=== PATIENT | female | born 1970 ===

== ENCOUNTER 2018-03-08 06:48 | Inpatient (IN) | payer OTHER ==
[2018-03-08] VITALS (14 sets, daily range): BP systolic 108–142; BP diastolic 62–82
[~2018-03-08] VITALS: Ht 147.3 cm
[2018-03-08] MEDS ORDERED: ceFAZolin sod 2 GM in D5W 110 ML IVPB ONE (07:00)
[2018-03-08] MEDS ORDERED: NKM (07:38)
[2018-03-08] MEDS ORDERED: Thrombin 5000 units TOPIC ONE ×2 (07:48→07:50)
[2018-03-08] MEDS ORDERED: EPINEPHrine 1mg/1ml Amp ONE (07:48)
[2018-03-08] MEDS ORDERED: Bacitracin 50000 Units Vial ONE (07:49)
[2018-03-08] MEDS ORDERED: Bupivacaine 0.5% Inj 30 ml vial INJ ONE (07:49)
[2018-03-08] MEDS ORDERED: Gelfoam Size TOPIC ONE (07:50)
[2018-03-08] MEDS ORDERED: Thrombin 5000 units spray kit TOPIC ONE (07:50)
[2018-03-08] MEDS ORDERED: Vancomycin 1gm inj IVPB ONE (07:50)
[2018-03-08] MEDS ORDERED: Gelfoam Absorbable 1gm powder pkt TOPIC ONE (07:51)
[2018-03-08] MEDS ORDERED: Heparin 5000 units/ml inj ONE ×2 (08:16→08:17)
[2018-03-08] MEDS ORDERED: Zemuron 50mg/5ml Inj IV ONE (08:41)
--- NOTE | 2018-03-08 08:45 | Pre-Procedure Note/Attestation ---
Pre-Procedure Note/Attestation Complete Prior to Procedure Procedure Narrative: Acdf c4-5 and c5-6 with bone marrow aspiration Indications for Procedure Pre-Operative Diagnosis: cervical radiculopathy Attestation I attest that I discussed the nature of the procedure; its benefits; risks and complications; and alternatives (and the risks and benefits of such alternatives ), prior to the procedure, with the patient (or the patient's legal printing supplies sales representative). I attest that, if there was a reasonable possibility of needing a blood transfusion, the patient (or the patient's legal printing supplies sales representative) was given the [facility] standardized written summary, pursuant to the [place] Blood Safety Act ([place] Health and Safety Code # 1645, as amended). I attest that I re-evaluated the patient just prior to the surgery and that there has been no change in the patient's H&P, except as documented below: Reji Wiley MD Mar 08, 2018 08:45
[2018-03-08] MEDS ORDERED: Dexamethasone 4mg/ml vial ONE (08:57)
[2018-03-08] MEDS ORDERED: Sodium Chloride 10ml vial INJ ONE (08:57)
[2018-03-08] MEDS ORDERED: Lidocaine 1% MPF 10mg/ml 5ml ONE (08:57)
[2018-03-08] MEDS ORDERED: fentaNYL 100 mcg/2 mL IV ONE ×2 (08:59→10:21)
[2018-03-08] MEDS ORDERED: LR 1000ml ONE (09:00)
[2018-03-08] MEDS ORDERED: Sterile Water Irrig 1000ml IRRIG ONE (09:00)
[2018-03-08] MEDS ORDERED: Propofol 1,000mg/ 100ml btl IV ONE (09:00)
[2018-03-08] MEDS ORDERED: NS Irrig 1000ml ONE (09:00)
[2018-03-08] MEDS ORDERED: Lidocaine 1% Plain 30 ml INJ ONE ×2 (09:01→10:46)
[2018-03-08] MEDS ORDERED: LR 1000ml 1,000 ML IVLG SCH (09:49)
[2018-03-08] MEDS ORDERED: DiphenhydrAMINE 50mg/ml Inj IVP PRN (10:00)
[2018-03-08] MEDS ORDERED: Metoclopramide 10mg/2ml Inj IVP PRN (10:00)
[2018-03-08] MEDS ORDERED: Norco 5mg/325mg tab ORAL PRN ×2 (10:00→14:30)
[2018-03-08] MEDS ORDERED: HYDROcodone/Acetamin 7.5/325 tab ORAL PRN ×3 (10:00→14:30)
[2018-03-08] MEDS ORDERED: Midazolam 2mg/2ml Inj IVP PRN (10:00)
[2018-03-08] MEDS ORDERED: Ketorolac 30mg Inj IV PRN ×2 (10:00)
[2018-03-08] MEDS ORDERED: oxyCODONE HCL/Acetaminophen 5/325mg ORAL PRN (10:00)
[2018-03-08] MEDS ORDERED: Labetalol 5mg/ml 20ml vial IV PRN (10:00)
[2018-03-08] MEDS ORDERED: Atropine Inj 1mg/10ml Syr IV PRN (10:00)
[2018-03-08] MEDS ORDERED: Acetaminophen (Non formulary) 100 ML IV SCH (10:00)
[2018-03-08] MEDS ORDERED: LORazepam Inj 2mg/ml 1ml IV PRN (10:00)
[2018-03-08] MEDS ORDERED: fentaNYL 100 mcg/2 mL IV PRN (10:00)
--- NOTE | 2018-03-08 10:00 | Anethesia Preoperative Eval ---
Anesthesia Pre-op PMH/ROS General Date of Evaluation: Mar 08, 2018 Time of Evaluation: 08:41 Anesthesiologist: Catherine ASA Score: ASA 1 Mallampati Score Class I : Soft palate, uvula, fauces, pillars visible Class II: Soft palate, uvula, fauces visible Class III: Soft palate, base of uvula visible Class IV: Only hard plate visible Mallampati Classification: Class I Surgeon: Saurabh Diagnosis: Neck Pain Surgical Procedure: ACDF C4-5, C5-6, Bone Marrow Aspiration Anesthesia History: none Family History: no anesthesia problems Allergies: Coded Allergies: No Known Allergies (Unverified , 03/08/18) Medications: see eMAR Past Medical History Gastrointestinal/Genitourinary: Reports: other - L Kidney Donated To Father PSxH Narrative: L Kidney SX Anesthesia Pre-op Phys. Exam Physician Exam Last Vital Signs Date Time Temp Pulse Resp B/P (MAP) Pulse Ox O2 Delivery O2 Flow Rate FiO2 03/08/18 07:34 98.1 61 18 136/77 (96) 100 98.1 03/08/18 07:27 Room Air Constitutional: NAD Neurologic: CN 2-12 intact Cardiovascular: RRR Respiratory: CTA Gastrointestinal: S/NT/ND Airway Exam Mallampati Score: Class I MO: full ROM: limited Teeth: intact Anesthesia Pre-op A/P Labs Urine Test Test 03/08/18 07:05 Urine HCG, Qualitative Negative (NEGATIVE) Risk Assessment & Plan Assessment: ASA 1 Plan: GA, BIS, GlideScope Go Status Change Before Surgery: No Pre-Antibiotics Dru Grams Ancef IV Given Within 1 Hr of Incision: Yes Time Given: 09:11 Bo Alexander MD Mar 08, 2018 09:59
--- NOTE | 2018-03-08 10:00 | Immediate Post-Op Evaluation ---
Immediate Post-Op Evalulation Immediate Post-Op Evalulation Procedure: ACDF C4-5, C5-6 Date of Evaluation: Mar 08, 2018 Time of Evaluation: 12:18 IV Fluids: 1000 LR Blood Products: 0 Estimated Blood Loss: 13 Urinary Output: 100 Blood Pressure Systolic: 127 Blood Pressure Diastolic: 73 Pulse Rate: 83 Respiratory Rate: 16 O2 Sat by Pulse Oximetry: 100 Temperature (Fahrenheit): 97.6 Pain Score (1-10): 3 Nausea: No Vomiting: No Complications 0 Patient Status: awake, reacts, patent, extubated, none Hydration Status: adequate Dru Grams Ancef IV Given Within 1 Hr of Incision: Yes Time Given: 09:11 Bo Alexander MD Mar 08, 2018 10:00
--- NOTE | 2018-03-08 12:17 | Brief Operative Note ---
Immediate Post Operative Note Operative Note Pre-op Diagnosis: cervical radiculopathy Procedure: acdf c45 and c56 with right iliac crest bone marrow aspiration Post-op Diagnosis: same as pre-op Findings: consistent w/pre-op dx studies Surgeon: Saurabh Subcontract Manager: Shauna Anesthesiologist: Ghassan Anesthesia: general Specimen: yes Complications: none Condition: stable Fluids: 1300cc Estimated Blood Loss: minimal - 13cc Drains: none Implant(s) used?: Yes Reji Wiley MD Mar 08, 2018 12:17
[2018-03-08] MEDS: Hydromorphone 0.5mg/0.5ml inj IVP PRN ×2 (12:27→13:04)
--- NOTE | 2018-03-08 13:43 | Diagnostic Imaging Report ---
Indication: Pain, post endotracheal tube placement Technique: One view of the chest Comparison: 5 hours earlier Findings: Interim endotracheal intubation, endotracheal tube tip projecting approximately 5 cm above the bertha. There is increased bilateral interstitial and airspace edema, left greater than right. The heart remains enlarged. Impression: Satisfactory endotracheal intubation Worsening interstitial and airspace edema, over 5 hours
[2018-03-08] MEDS ORDERED: Morphine Sulfate 4mg/ml Inj (IV USE ONLY) IV PRN (14:30)
[2018-03-08] MEDS ORDERED: Naloxone 0.4mg/ml Inj IVP PRN (14:30)
[2018-03-08] MEDS ORDERED: Morphine Sulfate 2mg/ml Inj(IV/IM USE ONLY) IV PRN (14:30)
[2018-03-08] MEDS: D5 1/2NS 1,000 ML IV SCH (15:04)
[2018-03-08] MEDS: Morphine Sulfate 4mg/ml Inj (IV USE ONLY) IV PRN (17:05)
[2018-03-08] MEDS: Docusate 100mg cap ORAL SCH (17:05)
[2018-03-08] MEDS: ceFAZolin sod 1 GM in D5W 110 ML IV SCH (17:06)
--- NOTE | 2018-03-08 23:45 | Operative Note - Dictated ---
DATE OF OPERATION: 03/08/2018 PREOPERATIVE DIAGNOSIS: C4-C5 and C5-C6 disk protrusion with upper extremity radiculopathy. POSTOPERATIVE DIAGNOSIS: C4-C5 and C5-C6 disk protrusion with upper extremity radiculopathy. PROCEDURES PERFORMED: 1. Anterior cervical interbody fusion at C4-C5 and C5-C6. 2. Anterior diskectomy and foraminotomy at C4-C5 and C5-C6. 3. Placement of PEEK interbody device at C4-C5 and C5-C6. 4. Interbody fusion with local autograft, Balsam allograft, and bone marrow aspirate concentrate. 5. Anterior cervical instrumentation from C4-C7. 6. Acquisition of bone marrow aspirate from the right iliac crest. SURGEON: Reji Wiley M.D. SENIOR BI ARCHITECT: Giacomo Villatoro M.D. ANESTHESIA: General endotracheal anesthesia. ANESTHESIOLOGIST: Bo Alexander M.D. EBL: 13 mL. FLUIDS: 1300 mL. IV ANTIBIOTICS: 2 g of Ancef. BACKGROUND: This is a pleasant female, who failed nonoperative treatment and option for above treatment was given. Risks, alternatives, and benefits were discussed with the patient at length. The patient wished to proceed. Consent form was signed and no guarantees were given. OPERATIVE FINDINGS: Herniated nucleus pulposus at C4-C5 and C5-C6 with central canal stenosis, severe bilateral neural foraminal stenosis, spondylosis, and nerve root impingement bilaterally at C4-C5 and C5-C6. DESCRIPTION OF OPERATION: The patient was brought into the operating room, supine on a stretcher. Appropriate IV lines were placed by the anesthesiologist. A 2 g of Ancef was administered. The patient was induced and intubated without complication. The patient was placed onto the operating room table. The neck was placed into neutral alignment. The arms were tucked by the side. All bony prominences were well padded as well as the four extremities. SSEP, EMGs, and neuromonitoring were done, and remained stable throughout the case. Preoperative fluoroscopy revealed the planned incision to be on the right side over the C5 vertebral body. Fluoroscopy showed the neck to be in adequate alignment. The neck was prepped and draped in the usual sterile fashion. At this point, the incision was carried out with a scalpel on the anterior right side of the neck in the crease of the neck. Hemostasis was achieved with bipolar cautery. The platysma was incised in line with the skin incision. Blunt dissection was carried out in the interval between the strap muscles and sternocleidomastoid. Superficial cervical fascia was dissected caudally as well as cephalad. Carotid pulse was palpated and was found to be well lateral to the field of dissection. Deep cervical fascia was encountered. Once deep cervical fascia was found, blunt dissection was carried out with Kittners as well as finger dissection to find the prevertebral space. The longus colli was found on both sides of the spine and subperiosteally dissected off of the spine. Retractors were set into place. A spinal needle was used to identify the disk spaces at C4-C5 and C5-C6 via lateral fluoroscopy. Retractors were set into place. The case in entirety was done with the use of intraoperatively sterilely draped microscope. At this point, attention was first diverted to the C5-C6 level. With a #15 scalpel, an incision was carried out in the anterior annulus and with straight and curved curettes and pituitary rongeurs as well as a high-speed drill, a radical diskectomy was carried out. Endplate cartilage was removed. Endplate bone was well preserved and the drilling was done to the posterior longitudinal ligament. There were significant disk protrusions causing central stenosis and osteophytes laterally and protrusions causing neural foraminal stenosis for the exiting C6 nerve root. At this point, the uncus was removed with a high-speed drill with a #1 Microsect curette was used to remove the PLL and with #1 and #2 Kerrison punches, a complete decompression of the spinal canal, spinal cord, neural foramina, and the exiting nerve root was accomplished. Valsalva was done at 40 mmHg. There was no CSF leak. An oblique and a complete decompression was accomplished. Now, retractors were placed at the C4-C5 level and with the same instruments, a high-speed drill, straight and curved curette, #1 and #2 Kerrison punches as well as a high-speed drill, a radical diskectomy was done. Endplate cartilage was removed. Endplate bone was well preserved and the drilling was done to the level of the posterior longitudinal ligament. A Microsect #1 curette was used to remove the posterior longitudinal ligament and a complete decompression of the central canal and neural foramina was accomplished. There was significant disk protrusions causing stenosis and a complete decompression of the neural foramina was completed. Valsalva was done and there was no CSF leak. Before this was done, the Jamshidi needle in the right iliac crest, which was also prepped and draped previously before skin incision on the neck. Jamshidi needle was placed in the iliac crest and 30 mL of bone marrow was aspirated and sent for concentration for stem cells. Once this was completed, attention was now diverted back to the spine and the spine case was started. Once the a diskectomies and foraminotomies were completed, trials from the Spinal [employer] System were used and a 6 mm PEEK interbody device was chosen, was packed with Balsam putty, bone marrow aspirate concentrate as well as local autograft, which was harvested from the drilling of the endplates and was packed into the PEEK interbody device. Now, the PEEK interbody device was tamped into place one at C5-C6 and another one at C4-C5 with excellent recreation of disk height and lordosis at both levels. The PEEK interbody device measured 11 x 14 x 6 mm with 7 degrees of lordosis and was from the [employer]inal [employer] System. Now, a [place] plate of 26 mm in length was chosen, bent into a lordotic shape, and was fixed to the anterior surface of the C4, C5, and C6 vertebral bodies with variable self-drilling screws at C4. A 14 mm screws were used bilaterally at C5 and C6. A 12 mm screws were used bilaterally. Each screw had excellent purchase and sat below the locking mechanism of the plate well and the screws were medialized appropriately once they were put in. At this point, the wound was copiously irrigated with triple antibiotic solution. This was done multiple times during the case SSEP and EMGs remained stable during the case. Hemostasis was achieved. The platysma was closed with 3-0 Vicryl suture. The subcuticular layer was closed with 3-0 Monocryl suture in an interrupted fashion. Dermabond was placed. All sponge, needle, and instrument counts were correct. There were no complications in the case. Cervical collar was placed. The patient was extubated, was taken to the recovery room in stable condition, and was found to be neurovascularly intact. Reji Wiley M.D. DR: SARITA JOB#: [id number] CC:
[2018-03-09] MEDS: ceFAZolin sod 1 GM in D5W 110 ML IV SCH ×2 (00:18→09:51)
[2018-03-09] MEDS: D5 1/2NS 1,000 ML IV SCH ×2 (00:18→10:35)
[2018-03-09] MEDS: Morphine Sulfate 4mg/ml Inj (IV USE ONLY) IV PRN ×3 (00:26→10:02)
[2018-03-09 00:58] VITALS: BP 102/64
[2018-03-09 04:59] VITALS: BP 103/70
--- NOTE | 2018-03-09 07:27 | 48 Hour Post Anesthesia Eval ---
Post Anesthesia Evaluation Procedure: ACDF C4-5, C5-6 Date of Evaluation: Mar 09, 2018 Time of Evaluation: 07:26 Blood Pressure Systolic: 103 0: 64 Pulse Rate: 72 Respiratory Rate: 20 Temperature (Fahrenheit): 97.6 O2 Sat by Pulse Oximetry: 99 Airway: patent Nausea: No Vomiting: No Pain Intensity: 2 Hydration Status: adequate Cardiopulmonary Status: stable Mental Status/LOC: patient returned to baseline Follow-up Care/Observations: n/a Post-Anesthesia Complications: none Follow-up care needed: ready to discharge Shaka Ashby MD Mar 09, 2018 07:27
[2018-03-09 08:00] VITALS: BP 117/71
[2018-03-09] MEDS: Docusate 100mg cap ORAL SCH (09:18)
[2018-03-09 12:00] VITALS: BP 109/70
--- NOTE | 2018-03-09 12:48 | History and Physical ---
History of Present Illness General Date patient seen: Mar 09, 2018 Present Illness HPI 47 year old female with cervical radiculopathy admitted for acdf c45 and c56 with right iliac crest bone marrow aspiration. Post operatively she is admitted for post op care. Allergies: Coded Allergies: No Known Allergies (Unverified , 03/08/18) Medication History Scheduled No Known Medications* (NKM - No Known Medications*), 0 ., (Reported) Patient History Healthcare decision maker CARLA AMBROCIOZ - Resuscitation status Full Code Advanced Directive on File Past Medical/Surgical History Past Medical/Surgical History: (1) Cervical radiculopathy Review of Systems All Other Systems: negative except mentioned in HPI Physical Exam General Appearance: WD/WN Lines, tubes and drains: peripheral HEENT: normocephalic, atraumatic Neck: non-tender, normal alignment Respiratory/Chest: lungs clear Cardiovascular/Chest: normal peripheral pulses, normal rate Abdomen: normal bowel sounds, non tender Genitourinary/Rectal: normal genital exam Extremities: normal range of motion Last 24 Hour Vital Signs Date Time Temp Pulse Resp B/P (MAP) Pulse Ox O2 Delivery O2 Flow Rate FiO2 03/09/18 12:00 97.8 77 18 109/70 (83) 96 97.8 03/09/18 09:46 Room Air 03/09/18 08:00 97.8 80 18 117/71 (86) 96 97.8 03/09/18 07:27 207.7 72 20 99 03/09/18 04:59 98.5 74 16 103/70 (81) 96 98.5 03/09/18 00:58 98.1 81 20 102/64 (77) 100 98.1 03/08/18 21:00 Room Air 03/08/18 20:04 98.3 86 19 117/72 (87) 98 98.3 03/08/18 16:00 97.5 83 18 108/67 (81) 97.5 03/08/18 14:15 97.4 87 18 122/74 (90) 97.4 03/08/18 13:45 97.4 86 18 139/64 (89) 97.4 03/08/18 13:45 Nasal Cannula 2.0 03/08/18 13:30 98.3 86 18 139/72 100 Nasal Cannula 3 98.3 03/08/18 13:15 83 17 123/72 100 Nasal Cannula 3 03/08/18 13:04 88 17 117/62 100 Nasal Cannula 3 03/08/18 13:04 97.2 03/08/18 12:57 97.2 03/08/18 12:55 82 25 138/78 100 Nasal Cannula 3 Intake and Output 03/08/18 03/09/18 19:00 07:00 Intake Total 2200 ml 1710 ml Output Total 450 ml 2300 ml Balance 1750 ml -590 ml Intake Oral 400 ml 400 ml IV Total 1800 ml 1310 ml Output Urine Total 400 ml 2300 ml Estimated Blood Loss 50 ml # Voids 1 Height (Feet): 4 Height (Inches): 10.00 Weight (Pounds): 0 Medications Current Medications Medications (Trade) Dose Ordered Sig/Marquita Route PRN Reason Start Time Stop Time Status Last Admin Dose Admin Acetaminophen (Tylenol) 650 mg Q4H PRN ORAL headache or temp>101 03/08/18 14:30 04/07/18 14:29 Acetaminophen/ Hydrocodone Bitart ([place] 5/325) 1 tab Q3H PRN ORAL Mild Pain (Pain Scale 1-3) 03/08/18 14:30 03/15/18 14:29 Acetaminophen/ Hydrocodone Bitart ([place] 7.5/325) 1 tab Q3H PRN ORAL Moderate Pain (Pain Scale 4-6) 03/08/18 14:30 03/15/18 14:29 Acetaminophen/ Hydrocodone Bitart ([place] 7.5/325) 2 tab Q3H PRN ORAL Severe Pain (Pain Scale 7-10) 03/08/18 14:30 03/15/18 14:29 Cetylpyridinium Chloride (Cepacol) 1 lozg EVERY 6 HOURS PRN DAMIEN sore throat 03/09/18 09:00 04/08/18 08:59 Dextrose/Sodium Chloride 1,000 ml @ 100 mls/hr Q10H IV 03/08/18 14:30 04/07/18 14:29 03/09/18 10:35 Docusate Sodium (Colace) 100 mg TWICE A DAY ORAL 03/08/18 18:00 04/07/18 17:59 03/09/18 09:18 Morphine Sulfate (Morphine Sulfate) 2 mg Q4H PRN IV Mild Pain (Pain Scale 1-3) 03/08/18 14:30 03/15/18 14:29 Morphine Sulfate (Morphine Sulfate) 4 mg Q3H PRN IV Severe Pain (Pain Scale 7-10) 03/08/18 14:30 03/15/18 14:29 03/09/18 10:02 Morphine Sulfate (Morphine Sulfate) 4 mg Q4H PRN IV Moderate Pain (Pain Scale 4-6) 03/08/18 14:30 03/15/18 14:29 Naloxone HCl (Narcan) 0.1 mg PRN PRN IVP RR<12/min, pt unarousable 03/08/18 14:30 04/07/18 14:29 Ondansetron HCl (Zofran) 4 mg Q6H PRN IVP Nausea & Vomiting 03/08/18 20:45 04/07/18 20:44 03/08/18 20:50 Temazepam (Restoril) 15 mg HSPRN PRN ORAL Insomnia 03/08/18 20:45 03/15/18 20:44 03/08/18 20:50 Assessment/Plan Problem List: (1) acdf c45 and c56 (2) Cervical radiculopathy ICD Codes: M54.12 - Radiculopathy, cervical region SNOMED: [id number] Assessment/Plan pain management post op care dvt prophylaxis symptomatic treatment. Yancy Randolph MD Mar 09, 2018 12:48
[2018-03-09] MEDS ORDERED: NORCO 10-325 T1 EACH ORAL ×2 (15:08→15:13)
[2018-03-09] MEDS ORDERED: SOMA250 MG PO ×2 (15:09→15:15)
[2018-03-09 16:34] VITALS: BP 111/70
[2018-03-09] MEDS ORDERED: Tubing IV Secondary IV ONE (16:59)
[2018-03-09] MEDS ORDERED: D5 1/2NS 1000ml IV ONE (16:59)
--- NOTE | 2018-03-10 12:06 | Discharge Summary ---
Discharge Summary Discharge Summary _ DATE OF ADMISSION: 03/08/2018 DATE OF DISCHARGE: 03/09/2018 CONSULTANTS: Dr. Yancy Randolph BRIEF HOSPITAL COURSE: Patient is a 47-year-old female, who was diagnosed with C4-C5 and C5-C6 disc protrusion with upper extremity radiculopathy, who've failed nonoperative treatment, was admitted and underwent ACDF on C4-C5 and C5-C6 with right iliac crest bone marrow aspiration. She tolerated procedure well and postoperatively was admitted for pain management. She was placed on SCDs for DVT prophylaxis. She was encouraged use of incentive spirometry. Diet was advanced. She was seen by physical therapy. Mosquera catheter was discontinued. She had good pain control and was ambulating well. Vitals were stable. She was discharged home. FINAL DIAGNOSES: C4-C5 and C5-C6 disc protrusion with upper extremity radiculopathy Status post ACDF on C4-C5 and C5-C6 with right iliac crest bone marrow aspiration (Refer to operative report) DISPOSITION: Patient was discharged home. DISCHARGE INSTRUCTIONS: Follow up within a week. I have been assigned to dictate discharge summary on this account, and I was not involved in the patient's management. Rosalinda Cowan NP Mar 10, 2018 12:06
--- NOTE | 2018-03-20 11:17 | General Progress Note ---
Progress Note Progress Note Date: 03-09-18 S: Patient doing well. Mild dysphagia with arm pain resolved. Mild pain in the cervical spine. collar on. ambulating avss a and o times 3 dressing cdi motor 5/5 in the ue lt intact calves soft and nt o: sp acdf and doing well p: dc today oob and pt fu in 7 to 10 days post op instructions given pain management Reji Wiley MD Mar 20, 2018 11:17
== END 2018-03-09 17:00 | disposition home or self-care (01) | DRG 30 ==
LOC: SDSOVERFLO 06:48 → 3E 13:45
PROC: 0RT30ZZ Resection of Cervical Vertebral Disc, Open Approach (ICD-10-PCS; principal; 2018-03-08 08:30)
PROC: 07DR3ZZ Extraction of Iliac Bone Marrow, Percutaneous Approach (ICD-10-PCS; principal; 2018-03-08 08:30)
PROC: 01N10ZZ Release Cervical Nerve, Open Approach (ICD-10-PCS; principal; 2018-03-08 08:30)
PROC: 0RG20A0 Fusion of 2 or more Cervical Vertebral Joints with Interbody Fusion Device, Anterior Approach, Anterior Column, Open Approach (ICD-10-PCS; principal; 2018-03-08 08:30)
DX: M54.12 Radiculopathy, cervical region (principal); M48.02 Spinal stenosis, cervical region; V89.2XXS Person injured in unspecified motor-vehicle accident, traffic, sequela
CPT/HCPCS: 36415; 72040; 76001; 81025; 86850; 86900; 86901; 87081; 94003; 94150; J2405